=== PATIENT | male | born 1950 | race Caucasian/White ===

== ENCOUNTER → 2017-02-21 | Outpatient (CLI) | payer BC ==
[2017-02-21 15:19] LABS: CREATININE 0.84 mg/dl (0.61-1.24)
== END | disposition home or self-care (01) ==
LOC: LAB 14:27
PROVIDERS: ATTEND Physical Medicine & Rehabilitation Sports Medicine
DX: M47.896 Other spondylosis, lumbar region (principal)
CPT/HCPCS: 82565; 84520